=== PATIENT | male | born 1950 | race Caucasian/White ===

== ENCOUNTER 2024-09-11 09:10 | Outpatient (CLI) | payer MEDICARE, SELFPAY | END 2024-09-11 09:11 | disposition home or self-care (01) | LOC: NFLDREF 09-13 06:15 | PROVIDERS: PCP Internal Medicine; Referring Provider Internal Medicine; Visit Provider Internal Medicine | DX: E78.5 Hyperlipidemia, unspecified (principal); Z12.5 Encounter for screening for malignant neoplasm of prostate | CPT/HCPCS: 80053; 80061; G0103 ==